=== PATIENT | female | born 1950 | race Caucasian/White ===

== ENCOUNTER 2018-02-15 06:01 | Day surgery (SDC) | payer OTHER ==
[2018-02-11 10:10] VITALS: BMI 22.8
[~2018-02-15 06:01] MED LIST: LACTATED RINGERS 1,000 ML IV SCH
[2018-02-15 07:26] VITALS: TEMP 98.2
[2018-02-15 07:31] LABS: Glucose,Whole Blood 88 mg/dL (75-99)
[2018-02-15] MEDS ORDERED: PROPOFOL 10 MG/ML 20 ML VIAL IV ONE (07:45)
--- NOTE | 2018-02-15 07:50 | P.GSHP ---
History of Present Illness H&P Date: 02/15/18 Chief Complaint: Screening colonoscopy This a 67-year-old female who presents today for screening colonoscopy. Patient denies a significant recheck placed. Past Medical History Past Medical History: Osteoarthritis (OA), Thyroid Disorder Additional Past Medical History / Comment(s): bridget thyroiditis History of Any Multi-Drug Resistant Organisms: None Reported Past Surgical History: Appendectomy, Tonsillectomy Additional Past Surgical History / Comment(s): D&C Past Anesthesia/Blood Transfusion Reactions: No Reported Reaction Smoking Status: Former smoker - Past Family History Mother Family Medical History: No Reported History Medications and Allergies Home Medications Medication Instructions Recorded Confirmed Type Barley Green 1 dose PO DAILY 02/11/18 02/15/18 History Cholecalciferol [Vitamin D3] 1,000 unit PO DAILY 02/11/18 02/15/18 History Ferrous Sulfate [Feosol] 325 mg PO DAILY 02/11/18 02/15/18 History Folic Acid 1 mg PO DAILY 02/11/18 02/15/18 History Levothyroxine Sodium [Tirosint] 100 mcg PO DAILY 02/11/18 02/15/18 History Methotrexate Sodium [Methotrexate] 2.5 mg PO MOWEFR 02/11/18 02/15/18 History Potassium 99 mg PO DAILY 02/11/18 02/15/18 History Raspberry Fiber 1 dose PO DAILY 02/11/18 02/15/18 History Vitamin B Complex 1 each PO DAILY 02/11/18 02/15/18 History predniSONE 5 mg PO DAILY 02/11/18 02/15/18 History Allergies Allergy/AdvReac Type Severity Reaction Status Date / Time No Known Allergies Allergy Verified 02/11/18 09:57 Surgical - Exam Vital Signs Temp Pulse Resp BP Pulse Ox 98.2 F 57 L 14 200/70 99 02/15/18 07:16 02/15/18 07:16 02/15/18 07:16 02/15/18 07:16 02/15/18 07:16 - General well developed, no distress - Eyes PERRL - ENT normal pinna - Neck no masses - Respiratory normal expansion - Cardiovascular Rhythm: regular - Abdomen Abdomen: soft, non tender Assessment and Plan Assessment: We'll perform screening colonoscopy.
--- NOTE | 2018-02-15 08:09 | P.OP ---
Date of Procedure: 02/15/18 Preoperative Diagnosis: Screening colonoscopy Postoperative Diagnosis: Normal colon Procedure(s) Performed: Colonoscopy Anesthesia: MAC Surgeon: Sandro Tubbs Pathology: none sent Condition: stable Disposition: PACU Description of Procedure: PROCEDURE: The patient was placed on the endoscopy table in the lateral position. Digital rectal examination was performed which revealed no abnormalities. s. Flexible colonoscope was then placed in the patient's anus and passed throughout the entire colon. The ileocecal valve was visualized. The cecum, ascending, transverse, descending and sigmoid colon were normal. The rectum was normal as well. There were no masses, polyps or diverticula noted in the entire colon. SUMMARY OF FINDINGS: Normal colonoscopy.
[2018-02-15 08:12] VITALS: RESP 16
[2018-02-15 08:28] VITALS: BP 159/73; PULSE 50
== END 2018-02-15 08:49 | disposition home or self-care (01) ==
LOC: ORWHC2ENDO 06:01
PROVIDERS: ATTEND Surgery
DX: Z12.11 Encounter for screening for malignant neoplasm of colon (principal); M19.90 Unspecified osteoarthritis, unspecified site; E06.3 Autoimmune thyroiditis; Z79.890 Hormone replacement therapy; Z79.52 Long term (current) use of systemic steroids; Z79.899 Other long term (current) drug therapy; Z87.891 Personal history of nicotine dependence
CPT/HCPCS: J2704; G0121; 45378

== ENCOUNTER → 2022-01-15 | Outpatient (CLI) | payer MEDICARE ==
--- NOTE | 2022-01-15 12:33 | NM ---
EXAMINATION TYPE: NM stress cardiolite complete DATE OF EXAM: 01/15/2022 COMPARISON: NONE HISTORY: 71-year-old female I25.10, I10. Atherosclerotic heart disease and hypertension. TECHNIQUE: After the intravenous administration of 9 mCi Tc 99m Sestamibi - Rest images obtained 51 minutes post injection. The patient exercised using a DAVE protocol and 1 minute prior to peak exe rcise was injected with 26.2 mCi Tc 99m Sestamibi - Stress images obtained 15 minutes post injection. FINDINGS: Targeted heart rate was 128 bpm. Heart rate achieved during performance of the study was 128 bpm. To radha exercise time 9 minutes 36 seconds. Review of stress and rest SPECT images demonstrates no distinct perfusion abnormality. Gated analysi s shows normal wall motion with an estimated left ventricular ejection fraction of 64 %. TID is measured at 1.13, upper limits of normal. IMPRESSION: No scintigraphic evidence for reversible ischemia. Note that the exercise stress was borderline adeq uate.
== END | disposition home or self-care (01) ==
LOC: RADNMMAIN 08:05
PROVIDERS: ATTEND Family Medicine
DX: I25.10 Atherosclerotic heart disease of native coronary artery without angina pectoris (principal); I10 Essential (primary) hypertension
CPT/HCPCS: 93017; 78452; A9500